=== PATIENT | male | born 1945 ===

== ENCOUNTER 2017-04-22 17:04 | Emergency (ER) | payer MEDICARE, BC ==
[2017-04-22 17:12] VITALS: BP 137/72
--- NOTE | 2017-04-22 17:24 | EDM.PDOC ---
ED HPI GENERAL MEDICAL PROBLEM - General Chief Complaint: General Stated Complaint: SICK [id number] Time Seen by Provider: 04/22/17 17:14 Source of Information: Reports: Patient History Limitations: Reports: No Limitations - History of Present Illness INITIAL COMMENTS - FREE TEXT/NARRATIVE: 71 yo male presents with 10 days of coughing. Was seen at his PCP and started on z-jose. Has completed coruse however conitnues with productive cough of green mucus despite mucinex. C/o headache and head pressure. States he originallt had a sore throat but it has decreased now. Denies n/v/d but has decreased appetite. Onset Date: 04/12/17 Duration: Getting Worse Location: Reports: Head, Chest Quality: Reports: Ache, Burning, Pressure Severity: Moderate Improves with: Reports: None Context: Reports: Activity Associated Symptoms: Reports: cough w sputum, Fever/Chills Head Pain Score (Numeric/FACES): 7 - Related Data Allergies Allergy/AdvReac Type Severity Reaction Status Date / Time Sulfa (Sulfonamide Allergy Cannot Verified 04/22/17 17:12 Antibiotics) Remember Home Meds: Home Meds Escitalopram [Lexapro] 20 mg PO ASDIRECTED 04/22/17 [History] Gabapentin [Neurontin] 300 mg PO ASDIRECTED 04/22/17 [History] Lisinopril [Prinivil] 5 mg PO ASDIRECTED 04/22/17 [History] Mirtazapine 15 mg PO ASDIRECTED 04/22/17 [History] Nortriptyline 25 mg PO ASDIRECTED 04/22/17 [History] Omeprazole 20 mg PO ASDIRECTED 04/22/17 [History] atorvaSTATin Calcium [Atorvastatin Calcium] 80 mg PO ASDIRECTED 04/22/17 [ History] metFORMIN HCl [Metformin HCl ER] 500 mg PO ASDIRECTED 04/22/17 [History] ED ROS GENERAL - Review of Systems Review Of Systems: ROS reveals no pertinent complaints other than HPI. ED EXAM, GENERAL - Physical Exam Exam: See Below Exam Limited By: No Limitations General Appearance: Alert, WD/WN, No Apparent Distress Eye Exam: Bilateral Eye: PERRL Ears: Normal External Exam, Normal Canal, Hearing Grossly Normal Ear Exam: Right Ear: TM normal, Left Ear: Erythema, TM Dull, TM Red, TM Bulging Nose: Clear Rhinorrhea Throat/Mouth: Normal Inspection, Normal Lips, Normal Teeth, Normal Gums, Normal Oropharynx, Normal Voice, No Airway Compromise Respiratory/Chest: No Respiratory Distress, No Accessory Muscle Use, Chest Non- Tender, Rhonchi (LLL), Wheezing (JOSE ALEJANDRO) Cardiovascular: Normal Peripheral Pulses, Regular Rate, Rhythm, No Edema, No Gallop, No JVD, No Murmur, No Rub GI/Abdominal: Normal Bowel Sounds, Soft, Non-Tender, No Organomegaly, No Distention, No Abnormal Bruit, No Mass Neurological: Alert, Oriented, CN II-XII Intact, Normal Cognition, Normal Gait, No Motor/Sensory Deficits Skin Exam: Warm, Dry, Intact, Normal Color, No Rash Course - Vital Signs Last Recorded V/S: Last Vital Signs Temp 97.2 F 04/22/17 17:11 Pulse 103 H 04/22/17 17:11 Resp 20 04/22/17 17:11 BP 137/72 04/22/17 17:11 Pulse Ox 98 04/22/17 17:11 - Orders/Labs/Meds Orders: Active Orders 24 hr Category Date Time Status Chest 2V [CR] Stat Exams 04/22/17 17:27 Taken Sodium Chloride 0.9% [Saline Flush] Med 04/22/17 17:27 Active 10 ml FLUSH ASDIRECTED PRN Saline Lock Insert [OM.PC] Stat Oth 04/22/17 17:27 Ordered Medication Orders Sodium Chloride (Saline Flush) 10 ml FLUSH ASDIRECTED PRN PRN Reason: Keep Vein Open Last Admin: 04/22/17 17:38 Dose: 10 ml Labs: Laboratory Tests 04/22/17 04/22/17 Range/Units 17:37 17:37 WBC 8.1 (5.0-10.0) 10^3/uL RBC 4.77 (4.6-6.2) 10^6/uL Hgb 14.5 (14.0-18.0) g/dL Hct 43.4 (40.0-54.0) % MCV 91.0 (80-100) fL MCH 30.4 (27.0-34.0) pg MCHC 33.4 (33.0-35.0) g/dL Plt Count 220 (150-450) 10^3/uL Neut % (Auto) 64.7 (42.2-75.2) % Lymph % (Auto) 21.6 (20.5-50.1) % [place] % (Auto) 10.7 H (2-8) % Eos % (Auto) 2.6 (1.0-3.0) % Baso % (Auto) 0.4 (0.0-1.0) % Add Manual Diff Yes Neutrophils % (Manual) 52 % Band Neutrophils % 17 % Lymphocytes % (Manual) 19 % Atypical Lymphs % 0 % Monocytes % (Manual) 6 % Eosinophils % (Manual) 6 % Basophils % (Manual) 0 Sodium 139 (135-145) mmol/L Potassium 4.2 (3.6-5.0) mmol/L Chloride 106 (101-111) mmol/L Carbon Dioxide 24.0 (21.0-31.0) mmol/L Anion Gap 13.2 BUN 19 H (7-18) mg/dL Creatinine 1.0 (0.6-1.3) mg/dL Est Cr Clr Drug Dosing 74.37 mL/min Estimated GFR (MDRD) > 60 Glucose 132 H (74-105) mg/dL Calcium 9.5 (8.4-10.2) mg/dl Meds: Medications Generic Name Dose Route Start Last Admin Trade Name Freq PRN Reason Stop Dose Admin Sodium Chloride 10 ml 04/22/17 17:27 04/22/17 17:38 Saline Flush FLUSH 10 ml ASDIRECTED PRN Administration Keep Vein Open - Re-Assessments/Exams Free Text/Narrative Re-Assessment/Exam: 04/22/17 18:22 Pt feels better, no acute processes noted. will dc home. Discussed plan with patient and and both agree Departure - Departure Time of Disposition: 18:23 Disposition: Refer to Observation Condition: Good Clinical Impression: Bronchitis, Sinusitis Otitis media Qualifiers: Otitis media type: suppurative Chronicity: acute Laterality: left Recurrence: not specified as recurrent Spontaneous tympanic membrane rupture: without spontaneous rupture Qualified Code(s): H66.002 - Acute suppurative otitis media without spontaneous rupture of ear drum, left ear - Discharge Information Instructions: Acute Bronchitis, Otitis Media, Adult, [id number], Sinusitis, Adult, [id number] Forms: ED Department Discharge Additional Instructions: Take the anotbiotic until complete. Take the pearls as needed for cough. continue your mucinex. return for any worsening symptoms. Follow up with your PCP when you return home - My Orders Last 24 Hours: My Active Orders 04/22/17 17:27 Chest 2V [CR] Stat Sodium Chloride 0.9% [Saline Flush] 10 ml FLUSH ASDIRECTED PRN Saline Lock Insert [OM.PC] Stat - Assessment/Plan Last 24 Hours: My Active Orders 04/22/17 17:27 Chest 2V [CR] Stat Sodium Chloride 0.9% [Saline Flush] 10 ml FLUSH ASDIRECTED PRN Saline Lock Insert [OM.PC] Stat
[2017-04-22] MEDS ORDERED: Sodium Chloride 0.9% 10 ML Syringe FLUSH PRN (17:27)
[2017-04-22 18:02] LABS: CHLORIDE,CL 106 mmol/L (101-111); SODIUM,NA 139 mmol/L (135-145)
[2017-04-22] MEDS ORDERED: Amoxicillin 500 MG Cap PO ONE (18:18)
[2017-04-22] MEDS ORDERED: Benzonatate 100 MG Cap PO ONE (18:18)
== END 2017-04-22 18:32 | disposition home or self-care (01) ==
LOC: DL.ED 17:04
DX: J40 Bronchitis, not specified as acute or chronic (principal); H66.002 Acute suppurative otitis media without spontaneous rupture of ear drum, left ear; J32.9 Chronic sinusitis, unspecified; Z88.2 Allergy status to sulfonamides
CPT/HCPCS: 36415; 71020; 80048; 85025; 99283; A9270; J7050